=== PATIENT | male | born 1950 | race Caucasian/White ===

== ENCOUNTER 2016-12-19 06:49 | Inpatient (IN) | payer MEDICARE, MEDICAID ==
[~2016-12-19] VITALS: Ht 193 cm; Wt 101.8 kg
[2016-12-19] MEDS ORDERED: SODIUM CHLORIDE 0.9% 1,000 ML IV ONE (07:28)
[2016-12-19] MEDS ORDERED: ASPIRIN 81 MG TABLET CHEW PO ONE (07:30)
[2016-12-19] MEDS ORDERED: ASPIRIN 81 MG TABLET CHEW ONE (07:33)
[2016-12-19 08:28] LABS: BLOOD UREA NITROGEN 15 mg/dL (7-18)
[2016-12-19 08:34] LABS: IS PT STATUS REG ER OR PRE ER? YES
[2016-12-19] MEDS ORDERED: FUROSEMIDE 40 MG/4 ML IV ONE (09:00)
[2016-12-19] MEDS ORDERED: FUROSEMIDE 40 MG/4 ML ONE (09:09)
[2016-12-19 11:33] VITALS: BP 164/114
[2016-12-19] MEDS ORDERED: ONDANSETRON 2MG/ML, 2ML IVPush PRN (12:00)
[2016-12-19] MEDS ORDERED: LABETALOL 5MG/ML, 20ML IVPush PRN (12:00)
[2016-12-19] MEDS ORDERED: POLYETHYLENE GLYCOL 17 GM PACKET PO PRN (12:00)
[2016-12-19] MEDS ORDERED: OXYcodone IR 5MG TABLET PO PRN (12:00)
[2016-12-19] MEDS ORDERED: BISACODYL 10 MG SUPP PR PRN (12:00)
[2016-12-19] MEDS ORDERED: ACETAMINOPHEN 325 MG TABLET PO PRN (12:00)
[2016-12-19] MEDS ORDERED: morphine SULFATE 10 MG/ML, 1ML IVPush PRN (12:00)
[2016-12-19] MEDS ORDERED: ENALAPRILAT 1.25 MG/ML, 2ML IVPush PRN (12:00)
[2016-12-19] MEDS ORDERED: DOCUSATE 100 MG CAPSULE PO PRN (12:00)
[2016-12-19] MEDS ORDERED: HEPARIN 5,000 UNITS/ML, 1ML IV ONE (12:30)
[2016-12-19] MEDS: HEPARIN 25,000 UNITS/500ML PMX 500 ML IV PRN (13:04)
[2016-12-19] MEDS: LISINOPRIL 10 MG TABLET PO SCH (13:28)
[2016-12-19] MEDS: METOPROLOL TARTRATE 25 MG TABLET PO SCH ×2 (13:28→21:00)
[2016-12-19 13:29] VITALS: BP 165/107
[2016-12-19] MEDS ORDERED: LORazepam 2 MG/ML, 1ML ONE (14:26)
[2016-12-19] MEDS ORDERED: LORazepam 2 MG/ML, 1ML IVPush PRN ×2 (14:30→16:00)
[2016-12-19 14:36] LABS: BLOOD UREA NITROGEN 14 mg/dL (7-18)
[2016-12-19] MEDS ORDERED: POTASSIUM CHLORIDE 20 MEQ TAB.ER.PRT PO ONE (15:00)
[2016-12-19 17:12] LABS: DAU SCREEN DISCLAIMER
[2016-12-19] MEDS: ZONISAMIDE 50 MG CAPSULE PO SCH (17:36)
[2016-12-19] MEDS: FUROSEMIDE 20 MG/2 ML IV SCH (17:36)
[2016-12-19 18:45] VITALS: BP 122/90
[2016-12-19] MEDS: HEPARIN 5,000 UNITS/ML, 1ML IV PRN (19:58)
[2016-12-20 02:23] VITALS: BP 167/93
[2016-12-20 05:16] LABS: ASPARTATE AMINO TRANSFERASE 40 U/L (15-37); BLOOD UREA NITROGEN 17 mg/dL (7-18)
[2016-12-20] MEDS: METOPROLOL TARTRATE 25 MG TABLET PO SCH ×2 (05:57→18:02)
[2016-12-20 07:10] VITALS: BP 139/79
[2016-12-20] MEDS: LISINOPRIL 10 MG TABLET PO SCH (08:41)
[2016-12-20] MEDS: FUROSEMIDE 20 MG/2 ML IV SCH ×2 (08:42→18:02)
[2016-12-20] MEDS: HEPARIN 25,000 UNITS/500ML PMX 500 ML IV PRN (10:22)
[2016-12-20 15:27] VITALS: BP 130/86
[2016-12-20 20:01] VITALS: BP 128/81
[2016-12-20] MEDS: ZONISAMIDE 50 MG CAPSULE PO SCH (20:19)
[2016-12-21 01:50] VITALS: BP 149/80
[2016-12-21 05:31] LABS: BLOOD UREA NITROGEN 16 mg/dL (7-18)
[2016-12-21] MEDS: METOPROLOL TARTRATE 25 MG TABLET PO SCH (05:49)
[2016-12-21] MEDS: HEPARIN 5,000 UNITS/ML, 1ML IV PRN (05:54)
[2016-12-21] MEDS: HEPARIN 25,000 UNITS/500ML PMX 500 ML IV PRN (05:55)
[2016-12-21 08:00] VITALS: BP 149/93
[2016-12-21] MEDS: LISINOPRIL 10 MG TABLET PO SCH (08:23)
[2016-12-21] MEDS: FUROSEMIDE 20 MG/2 ML IV SCH (08:23)
[2016-12-21 14:00] VITALS: BP 140/80
[2016-12-21] MEDS ORDERED: APIX5TAB PO (16:41)
[2016-12-21] MEDS ORDERED: ZONI50CA2 PO (16:41)
[2016-12-21] MEDS ORDERED: METO25TA35 PO (16:41)
[2016-12-21] MEDS ORDERED: SPIR50TA PO (16:41)
[2016-12-21] MEDS ORDERED: DOCU-30 PO (16:41)
[2016-12-21] MEDS ORDERED: LISI-167 PO (16:41)
[2016-12-21] MEDS ORDERED: FURO40TA6 PO (16:41)
[2016-12-21] MEDS ORDERED: MAGN64TA9 PO (16:45)
[2016-12-21] MEDS ORDERED: POTA20TA6 PO (16:45)
== END 2016-12-21 18:28 | disposition home or self-care (01) | DRG 308 ==
LOC: ED 09:31 → EDIP 09:32 → ED 09:53 → 5SO 11:26
PROVIDERS: ADMIT Family Medicine; ATTEND Family Medicine
DX: I48.91 Unspecified atrial fibrillation (principal); I50.21 Acute systolic (congestive) heart failure; G40.209 Localization-related (focal) (partial) symptomatic epilepsy and epileptic syndromes with complex partial seizures, not intractable, without status epilepticus; I11.0 Hypertensive heart disease with heart failure; M54.30 Sciatica, unspecified side; F41.9 Anxiety disorder, unspecified; F12.90 Cannabis use, unspecified, uncomplicated; E78.5 Hyperlipidemia, unspecified; G47.00 Insomnia, unspecified; I34.0 Nonrheumatic mitral (valve) insufficiency; Z87.442 Personal history of urinary calculi; Z91.14 Patient's other noncompliance with medication regimen
CPT/HCPCS: 36415; 70450; 71010; 80048; 80053; 80061; 80307; 81003; 82040; 82607; 82962; 83036; 83735; 83880; 84439; 84443; 84484; 85025; 85520; 85610; 85730; 93005; 93306; 93970; 96361; 96374; 96375; J1644; J1940; J2060; J7030

== ENCOUNTER → 2018-01-22 | Outpatient (CLI) | payer MEDICARE, MEDICAID ==
[~2018-01-22] MED LIST: APIX5TAB PO; DOCU-131 PO; FURO40TA6 PO; LISI-167 PO; MAGNESIUM DR64 MG PO; METO25TA35 PO; POTA20TA6 PO; SPIR50TA PO; ZONI50CA2 PO
== END | disposition home or self-care (01) ==
LOC: CARD 07:34
PROVIDERS: ATTEND Registered Nurse
DX: G40.201 Localization-related (focal) (partial) symptomatic epilepsy and epileptic syndromes with complex partial seizures, not intractable, with status epilepticus (principal)
CPT/HCPCS: 95819

== ENCOUNTER → 2018-02-09 | Outpatient (CLI) | payer MEDICARE, MEDICAID | END | disposition home or self-care (01) | LOC: CFH 12:39 | PROVIDERS: ATTEND Internal Medicine Cardiovascular Disease | DX: I08.1 Rheumatic disorders of both mitral and tricuspid valves (principal); I42.9 Cardiomyopathy, unspecified; I10 Essential (primary) hypertension | CPT/HCPCS: 93306 ==

== ENCOUNTER 2018-08-09 08:18 | Emergency (ER) | payer MEDICARE, MEDICAID ==
[~2018-08-09] VITALS: Ht 193 cm; Wt 86.1 kg
[2018-08-09 11:00] VITALS: BP 115/83
--- NOTE | 2018-08-09 11:01 | NUR ---
pt upright on gurney awake & comfortable, responds approp to staff, NAD, comfort measures provided, friend at BS, call light within reach.
--- NOTE | 2018-08-09 11:36 | NUR ---
[place] [facility] in [facility] - 08/09/18 at 1137 by DANIEL Patient given discharge instructions and they have confirmed that they understand the instructions. Patient ambulatory with steady gait.
--- NOTE | 2018-08-09 11:37 | NUR ---
pt left prior to receiving written DC instructions, pt verbalized understanding of verbal DC instructions given by ERP before eloping.
== END 2018-08-09 11:38 | disposition left against medical advice (07) ==
LOC: ED 09:04
DX: K40.90 Unilateral inguinal hernia, without obstruction or gangrene, not specified as recurrent (principal); E78.5 Hyperlipidemia, unspecified; I50.9 Heart failure, unspecified; I11.0 Hypertensive heart disease with heart failure; I48.91 Unspecified atrial fibrillation
CPT/HCPCS: 76857; 99284

== ENCOUNTER 2019-02-13 15:58 | Emergency (ER) | payer MEDICARE, MEDICAID ==
[~2019-02-13] VITALS: Ht 193 cm; Wt 78.8 kg
[2019-02-13 16:18] VITALS: BP 109/80
== END 2019-02-13 17:21 | disposition home or self-care (01) ==
LOC: ED 17:13
DX: R60.0 Localized edema (principal); E78.5 Hyperlipidemia, unspecified; I48.91 Unspecified atrial fibrillation; I50.9 Heart failure, unspecified; I11.0 Hypertensive heart disease with heart failure; F32.9 Major depressive disorder, single episode, unspecified
CPT/HCPCS: 99284

== ENCOUNTER 2019-08-02 04:44 | Emergency (ER) | payer MEDICARE, MEDICAID ==
[~2019-08-02] VITALS: Ht 193 cm; Wt 84.9 kg
[~2019-08-02 04:44] MED LIST changes: +ZONI50CA10 PO; -ZONI50CA2 PO
--- NOTE | 2019-08-02 04:57 | NUR ---
pt stated pt denied any SA SI but pt stated pt feels like depressed d/t unable to get enough money from social security for survive to live. pt probably needs some help from outreach and education social worker.
--- NOTE | 2019-08-02 05:18 | NUR ---
MD WAS ABLE TO REDUCE HERNIA. PT TBDC
--- NOTE | 2019-08-02 05:36 | NUR ---
PT WAS GIVEN A WEALTH OF REFERRALS FROM [employer] FOR PATIENTS WORRY OF NOT HAVING ENOUGH MONEY. PT GREATFUL OF THIS. PT GIVEN TAXI VOUCHER FOR SAFE DC.
[2019-08-02 05:37] VITALS: BP 135/74
== END 2019-08-02 05:39 | disposition home or self-care (01) ==
LOC: ED 05:14
DX: K40.91 Unilateral inguinal hernia, without obstruction or gangrene, recurrent (principal)
CPT/HCPCS: 99281

== ENCOUNTER 2019-11-27 15:33 | Observation (INO) | payer MEDICARE, MEDICAID ==
[~2019-11-27] VITALS: Ht 193 cm; Wt 149.0 kg
--- NOTE | 2019-11-27 16:26 | NUR ---
[employer]: PT AMBULATORY TO ROOM FROM LOBBY
--- NOTE | 2019-11-27 16:59 | NUR ---
PT STATES RT GROIN SWELLING AND PAIN AT SITE X3 WEEKS. PT ALSO STATES DIFFICULTY SLEEPING. PT STATES LAST NIGHT WHILE "HALF ASLEEP," HE TRIPPED ONTO A DRESSER AND NOT HAS A SMALL LAC ABOVE LT EYE WELL BILAT BLACK EYES. PT DENIES ANY LOC. PT ALSO STATES RED BUMPS (RASH) THROUGHOUT BODY. PT PLACED ON MONITORS. A&OX4, NO DISTRESS. WILL FOLLOW ORDERS.
--- NOTE | 2019-11-27 17:05 | NUR ---
PT TO IMAGING.
[2019-11-27 17:14] LABS: BASOPHILS # (AUTO) 0.16 x10^3/uL (0-0.1); BASOPHILS % (AUTO) 2 % (0-1); EOSINOPHILS # (AUTO) 0.27 x10^3/uL (0-0.4); EOSINOPHILS % (AUTO) 3 % (1-7); LYMPHOCYTES # (AUTO) 1.53 x10^3/uL (1-3.4); LYMPHOCYTES % (AUTO) 17 % (22-44); MD NO; MEAN CORPUSCULAR HEMOGLOBIN 30.2 pg (27.5-34.5); MEAN CORPUSCULAR VOLUME 91.5 fL (81-97); MEAN PLATELET VOLUME 8.8 fL (7.4-10.4); MONOCYTES # (AUTO) 0.63 x10^3/uL (0.2-0.8); MONOCYTES % (AUTO) 7 % (2-9); NEUTROPHILS # (AUTO) 6.43 x10^3/uL (1.8-6.8); NEUTROPHILS % (AUTO) 71 % (42-75); PLATELET COUNT 199 x10^3/uL (130-400); RED BLOOD COUNT 4.86 x10^6/uL (4.38-5.82); RED CELL DISTRIBUTION WIDTH 14.2 % (9.4-14.8)
[2019-11-27 17:19] LABS: INTERNATIONAL NORMALIZED RATIO 0.99 (0.93-1.1); PROTHROMBIN TIME 10.5 Seconds (9.6-11.5)
[2019-11-27 17:22] LABS: ALBUMIN 3.6 g/dL (3.4-5.0); ANION GAP 6 mmol/L (5-15); CALCIUM 8.5 mg/dL (8.5-10.1); CHLORIDE 107 mmol/L (98-107)
[2019-11-27 17:27] LABS: TROPONIN I < 0.015 ng/mL (0.000-0.045)
--- NOTE | 2019-11-27 17:57 | NUR ---
PT RESTING IN BED, REMAINS ON MONITORS. PT DENIES NEEDS, CALL LIGHT IN REACH. CONT TO MONITOR.
--- NOTE | 2019-11-27 18:13 | NUR ---
PT UP FOR ERMD RECHECK. DENIES NEEDS. REMAINS ON MONITORS, VSS.
[2019-11-27] MEDS ORDERED: LAMO100T8 PO (18:38)
--- NOTE | 2019-11-27 18:58 | NUR ---
REPORT GIVEN TO HECTOR AVENDAÑO.
--- NOTE | 2019-11-27 19:16 | NUR ---
ASSUMED CARE OF PT. PT RESTING WITH NO NEEDS AT THIS TIME. AWAITING INPATIENT BED PLACEMENT.
[2019-11-27] MEDS ORDERED: LAMO100T5 PO (19:30)
--- NOTE | 2019-11-27 19:49 | NUR ---
REPORT GIVEN TO GISSEL ON 4N
[2019-11-27 21:00] VITALS: BP 181/108
[2019-11-27] MEDS ORDERED: hydrALAzine 20 MG/ML, 1ML ONE (21:24)
[2019-11-27] MEDS: TEMAZEPAM 15 MG CAPSULE PO PRN ×2 (21:27→22:51)
[2019-11-27] MEDS: hydrALAzine 20 MG/ML, 1ML IV PRN (21:27)
[2019-11-27 22:24] VITALS: BP 147/97
[2019-11-28] VITALS (7 sets, daily range): BP systolic 135–196; BP diastolic 75–125
[2019-11-28] MEDS ORDERED: PROMETHAZINE 25 MG/ML, 1ML IM PRN (01:00)
[2019-11-28] MEDS ORDERED: ACETAMINOPHEN 325 MG TABLET PO PRN (01:00)
[2019-11-28] MEDS ORDERED: KETOROLAC 30 MG/1 ML IV PRN (01:00)
[2019-11-28] MEDS ORDERED: morphine SULFATE 10 MG/ML, 1ML IVPush PRN (01:00)
[2019-11-28] MEDS ORDERED: LABETALOL 5MG/ML, 20ML IVPush PRN (01:00)
[2019-11-28] MEDS ORDERED: ONDANSETRON 2MG/ML, 2ML IVPush PRN (01:00)
[2019-11-28] MEDS: DIPHENHYDRAMINE 25 MG CAPSULE PO PRN (02:02)
[2019-11-28] MEDS: LAMOTRIGINE 100 MG TABLET PO SCH (08:55)
[2019-11-28] MEDS ORDERED: LAMOTRIGINE 100 MG TABLET PO SCH (09:00)
[2019-11-28 09:04] LABS: AMPHETAMINE SCREEN, URINE Negative (Negative); BARBITURATE SCREEN, URINE Negative (Negative); BENZODIAZEPINE SCREEN, URINE Negative (Negative); CANNABINOID SCREEN, URINE Positive (Negative); COCAINE SCREEN, URINE Negative (Negative); METHADONE SCREEN, URINE Negative (Negative); OPIATE SCREEN, URINE Negative (Negative)
[2019-11-28] MEDS: LISINOPRIL 5 MG TABLET PO SCH (10:55)
[2019-11-28] MEDS: ENOXAPARIN 80 MG/0.8 ML SQ SCH ×2 (10:57→23:08)
[2019-11-28] MEDS: CARVEDILOL 3.125 MG TABLET PO SCH (17:49)
[2019-11-28] MEDS: hydrALAzine 20 MG/ML, 1ML IV PRN (19:12)
[2019-11-28] MEDS: TEMAZEPAM 15 MG CAPSULE PO PRN (20:16)
[2019-11-29] MEDS: DIPHENHYDRAMINE 25 MG CAPSULE PO PRN (00:13)
[2019-11-29] MEDS: CARVEDILOL 3.125 MG TABLET PO SCH (05:59)
[2019-11-29 06:25] VITALS: BP 170/96
[2019-11-29] MEDS: LISINOPRIL 5 MG TABLET PO SCH (09:23)
[2019-11-29] MEDS: LAMOTRIGINE 100 MG TABLET PO SCH (09:23)
[2019-11-29] MEDS: ENOXAPARIN 80 MG/0.8 ML SQ SCH (12:39)
[2019-11-29] MEDS ORDERED: METO25TA35 PO (13:09)
[2019-11-29] MEDS ORDERED: APIX5TAB PO (13:09)
[2019-11-29] MEDS ORDERED: LISI5TAB7 PO (13:09)
== END 2019-11-29 13:30 | disposition home or self-care (01) ==
LOC: ED 18:19 → INTOOBSV 18:39 → EDIP 18:39 → 4WST 20:03 → DCLOUNGE 11-29 13:20
PROVIDERS: ADMIT Family Medicine; ATTEND Internal Medicine
DX: K40.90 Unilateral inguinal hernia, without obstruction or gangrene, not specified as recurrent (principal); R10.9 Unspecified abdominal pain; R11.0 Nausea; I11.0 Hypertensive heart disease with heart failure; I50.9 Heart failure, unspecified; G40.A09 Absence epileptic syndrome, not intractable, without status epilepticus; L29.9 Pruritus, unspecified; I48.0 Paroxysmal atrial fibrillation; E78.5 Hyperlipidemia, unspecified; F32.9 Major depressive disorder, single episode, unspecified; M54.30 Sciatica, unspecified side; D68.69 Other thrombophilia; F51.04 Psychophysiologic insomnia; Z87.442 Personal history of urinary calculi; Z91.19 Patient's noncompliance with other medical treatment and regimen
CPT/HCPCS: 36415; 70450; 74021; 80048; 80307; 82040; 83605; 84484; 85025; 85610; 85730; 93005; 93306; 96372; 96374; 96375; 96376; 99285; G0378; J0360; J1650; Q0163